=== PATIENT | female | born 1965 ===

== ENCOUNTER 2019-12-04 13:07 | Emergency (ER) | payer OTHER, SELFPAY ==
[2019-12-04 13:25] VITALS: BP 158/94; PULSE 78; RESP 14; TEMP 36.7; O2SAT 95; BMI 46.7
--- NOTE | 2019-12-04 13:32 | CT_ITS ---
WS: [id number] CT scan of the head, 12/04/2019 Clinical Data: FALL Comparison: None. DLP: 864.[address] scans at [facility] use at least one of these dose optimization techniques: automat ed exposure control; mA and/or kV adjustment per patient size (includes targeted exams where dose is matched to clinical indication); or iterative reconstruction. Findings: The ventricular system is normal without shift. No recent infarct or hemorrhage is seen. There are no abnormal intracerebral masses. The cerebellum and brainstem are not remarkable. Bony windows of the skull and skull base show no fractures or erosions. The mastoid air cells, internal grinder al auditory canals, sella turcica, intraorbital contents, and paranasal sinuses are unremarkable. CT/CT head wo con* [id number] Impression: Negative CT scan of the head
--- NOTE | 2019-12-04 13:52 | XR_ITS ---
WS: [id number] Left shoulder, 3 views, 12/04/2019 Clinical Data: fall Comparison: None. Findings: No fractures or dislocations are seen. The AC joint is normal. The adjacent left clavicle, left scapu la and ribs are normal. The soft tissues are unremarkable. XR/XR shoulder LT min 2V* [id number] Impression: Negative left shoulder.
[2019-12-04 14:23] VITALS: BP 170/100; PULSE 73; O2SAT 94
--- NOTE | 2019-12-04 14:29 | ED_ITS ---
HPI - Head Injury General: Chief complaint: Head Injury Stated complaint: fall/hit head Time Seen by Provider: 12/04/19 13:40 History of Present Illness: HPI Narrative: Patient is a 54-year-old female who was walking outside of her place of employment today. She tripped over a sticky spot of tar and fell onto her left side. She is complaining of left shoulder pain and head pain. She said she hit her head on the left side but the pain is on the right side. She takes Eliquis for A. fib and was sent over to get a head CT due to her being on a blood thinner. She denies loss of consciousness. Complaint: head injury and fall Onset (ago): unknown (11:55 this morning) Mechanism of Injury: fall Place: work Loss of Consciousness: no Associated symptoms: Deny nausea, neck pain or vomiting Review of Systems General: Reports: 10 or more systems reviewed and unremarkable except in HPI and below Const: Denies: fever(s), chills, fatigue or malaise Eyes: Denies: change in vision ENMT: Denies: odynophagia Card: Denies: chest pain or swelling of feet/ankles Resp: Denies: dyspnea, productive cough or non-productive cough GI: Denies: abdominal pain, nausea or vomiting : Denies: flank pain or difficulty voiding Musc: Reports: joint pain (Left shoulder); Denies: neck pain or back pain Skin/Breast: Denies: rash Neuro: Denies: headache(s), numbness in extremities or weakness in extremities Hasmukh/Lymph: Denies: easy bruising or easy bleeding [facility] ED PFSH: Medical History (Updated 12/04/19 @ 15:05 by Grecia Campbell MD) Atrial fibrillation Rheumatoid arthritis Physical Exam Const: COMMON NORMALS: no acute distress, patient oriented x3, no limitations and alert GENERAL APPEARANCE: cooperative and comfortable HENMT: HEAD & SCALP: normal to inspection FACE & SINUS: normal facial exam Eye: GENERAL EYE: appearance normal, both eyes and all related structures Neck/C-Spine: COMMON NORMALS: supple, no meningeal signs and no JVD Chest: COMMONS NORMALS: normal inspection of the chest Resp: COMMON NORMALS: normal respiratory effort, No use of accessory muscles and clear to auscultation bilaterally AUSCULTATION: clear to auscultation bilaterally Cardio: COMMON NORMALS: no JVD, regular rate, regular rhythm and No murmurs present (Cardio) RATE: regular rate RHYTHM: regular rhythm GI: COMMON NORMALS: Normal to inspection, nondistended, normoactive bowel sounds present, Soft to palpation and non-tender INSPECTION: Yes normal to inspection AUSCULTATION: Yes normoactive bowel sounds PALPATION: Yes Soft to palpation Back/Pelvis: COMMON NORMALS: thoracic and lumbar spine normal to inspection Extremity: COMMON NORMALS: normal to inspection Neuro: COMMON NORMALS: patient oriented x3, moves all extremities, no focal motor deficits and no sensory deficits noted SENSORIUM/ORIENTATION: Yes alert MENINGEAL SIGNS: Yes no meningeal signs Psych: COMMON NORMALS: mental status grossly normal, cooperative and normal affect Skin: COMMON NORMALS: no rashes or lesions noted and turgor normal GENERAL SKIN EXAM: no rashes or lesions noted and turgor normal Course ED course: Work-up negative for acute injury. Potential for concussion given her symptoms of some difficulty focusing after the injury. Referred to occupational health for further management per her company policy. Vital Signs: Vital signs: Vital Signs Temperature 98.0 F 12/04/19 13:25 Pulse Rate 71 12/04/19 15:20 Respiratory Rate 16 12/04/19 15:20 Blood Pressure 146/89 12/04/19 15:20 Pulse Oximetry 93 12/04/19 15:20 MDM - Head Injury MDM Narrative: Medical decision making narrative: Fall with head injury and history of being on blood thinners. Rule out bleed. Rule out injury to left shoulder. Discharge Plan Discharge Patient Disposition: Home Clinical Impression: Concussion without loss of consciousness Qualifiers: Encounter type: initial encounter Qualified Code(s): S06.0X0A - Concussion without loss of consciousness, initial encounter Condition: Stable Discharge Orders: Discharge Order (Routine); Ordered 12/04/19 Ordered By: Grecia Campbell Referrals: Cheryl Chopra FNP [Primary Care Provider] - Discharge Diet: Usual diet Discharge Activity: Resume usual activity Patient Instructions: Minor Head Injury (ED) Activity Restrictions/Additional Instructions: Return to the emergency department if worsening headache, dizziness, vomiting. Follow-up with your primary care doctor or occupational health as needed. Stand Alone Forms: Work/School Release Discharge Date/Time: 12/04/19 15:20 Coding Level of Care Code ED Communications Engineering Technician for Chg Fwd Exam Comprehensive
[2019-12-04 15:02] VITALS: BP 148/85; PULSE 67; RESP 18; O2SAT 96
[2019-12-04 15:20] VITALS: BP 146/89; PULSE 71; RESP 16; O2SAT 93
== END 2019-12-04 15:20 | disposition home or self-care (01) ==
PROVIDERS: Emergency Provider Emergency Medicine; PCP Nurse Practitioner Primary Care
DX: S06.0X0A Concussion without loss of consciousness, initial encounter (principal); W18.09XA Striking against other object with subsequent fall, initial encounter
CPT/HCPCS: 12345; 70450; 73030; 99281; 99283